=== PATIENT | female | born 2005 | race American Indian/Alaskan Native ===

== ENCOUNTER 2025-01-27 19:39 | Emergency (ER) | payer OTHER ==
[~2025-01-27] VITALS: Ht 175.3 cm; Wt 69.5 kg
[~2025-01-27 19:39] MED LIST: ACETAMINOP160 MG/52 PO; CEPHALEXIN500 MG PO; NORCO 5-325 TA1 EACH PO
[2025-01-27] MEDS ORDERED: METHYLPREDNISOLO4 M1 PO (21:11)
[2025-01-27 21:19] VITALS: BP 130/85
== END 2025-01-27 21:19 | disposition home or self-care (01) ==
LOC: ED 19:39
DX: J03.80 Acute tonsillitis due to other specified organisms (principal); B97.89 Other viral agents as the cause of diseases classified elsewhere
CPT/HCPCS: 87651; 99283